=== PATIENT | male | born 1985 | race Caucasian/White ===

== ENCOUNTER 2017-09-01 20:41 | Emergency (ER) | payer SELFPAY ==
[2017-09-01] MEDS ORDERED: Metoprolol Tartrate 25 MG Tab PO ONE (21:43)
--- NOTE | 2017-09-01 21:47 | EDM.PDOC ---
ED HPI GENERAL MEDICAL PROBLEM - General Stated Complaint: HIGH BLOOD PRESSURE Time Seen by Provider: 09/01/17 21:44 Source of Information: Reports: Patient History Limitations: Reports: No Limitations - History of Present Illness INITIAL COMMENTS - FREE TEXT/NARRATIVE: History of present illness: [31-year-old male presenting with complaints of high blood pressure patient indicates he does take Lopressor 25 mg twice a day but he left health without his prescription and he is just here asking for a pill for tonight and a prescription to hold him over since he won't be back home for a month.] Review of systems: As per history of present illness and below otherwise all systems reviewed and negative. Past medical history: As per history of present illness and as reviewed below otherwise noncontributory. Surgical history: As per history of present illness and as reviewed below otherwise noncontributory. Social history: No reported history of drug or alcohol abuse. Family history: As per history of present illness and as reviewed below otherwise noncontributory. Physical exam: HEENT: Atraumatic, normocephalic, pupils reactive, negative for conjunctival pallor or scleral icterus, mucous membranes moist, throat clear, neck supple, nontender, trachea midline. Lungs: Clear to auscultation, breath sounds equal bilaterally, chest nontender. Heart: S1S2, regular, negative for clicks, rubs, or JVD. Abdomen: Soft, nondistended, nontender. Negative for masses or hepatosplenomegaly. Negative for costovertebral tenderness. Pelvis: Stable nontender. Genitourinary: Deferred. Rectal: Deferred. Extremities: Atraumatic, negative for cords or calf pain. Neurovascular unremarkable. Neuro: Awake, alert, oriented. Cranial nerves II through XII unremarkable. Cerebellum unremarkable. Motor and sensory unremarkable throughout. Exam nonfocal. Assessment is benign save the subjective complaint as noted in history of present illness Diagnostics: [] Therapeutics: [Lopressor 25 mg 1 pill here now] Impression: [Hypertension] Plan: [Refill prescription] Definitive disposition and diagnosis as appropriate pending reevaluation and review of above. - Related Data Home Meds: Home Meds Metoprolol Tartrate 25 mg PO BID #60 tablet 09/01/17 [Rx] ED ROS GENERAL - Review of Systems Review Of Systems: See Below (See history of present illness) ED EXAM, GENERAL - Physical Exam Exam: See Below (History of present illness) Course - Orders/Labs/Meds Meds: Medications Discontinued Medications Generic Name Dose Route Start Last Admin Trade Name Carmelina PRN Reason Stop Dose Admin Metoprolol Tartrate 25 mg 09/01/17 21:43 Lopressor PO 09/01/17 21:44 ONETIME ONE Departure - Departure Time of Disposition: 21:46 Disposition: Home, Self-Care 01 Condition: Good Clinical Impression: Medicine refill - Discharge Information Prescriptions: Metoprolol Tartrate 25 mg PO BID #60 tablet Referrals: PCP,None [Primary Care Provider] - Additional Instructions: The following information is given to patients seen in the emergency department who are being discharged to home. This information is to outline your options for follow-up care. We provide all patients seen in our emergency department with a follow-up referral. The need for follow-up, as well as the timing and circumstances, are variable depending upon the specifics of your emergency department visit. If you don't have a primary care physician on staff, we will provide you with a referral. We always advise you to contact your personal physician following an emergency department visit to inform them of the circumstance of the visit and for follow-up with them and/or the need for any referrals to a consulting specialist. The emergency department will also refer you to a specialist when appropriate. This referral assures that you have the opportunity for follow-up care with a specialist. All of these measure are taken in an effort to provide you with optimal care, which includes your follow-up. Under all circumstances we always encourage you to contact your private physician who remains a resource for coordinating your care. When calling for follow-up care, please make the office aware that this follow-up is from your recent emergency room visit. If for any reason you are refused follow-up, please contact the [facility] Emergency Department at and asked to speak to the emergency department charge nurse. Your blood pressure medicine has been refilled as per your request Follow up with your primary care provider as soon as possible Return to ED as needed as discussed
== END 2017-09-01 22:20 | disposition home or self-care (01) ==
LOC: MW.ED 20:41
DX: Z76.0 Encounter for issue of repeat prescription (principal); I10 Essential (primary) hypertension
CPT/HCPCS: 99281; A9270